=== PATIENT | female | born 1990 | race African-American/Black ===

== ENCOUNTER 2019-09-24 00:30 | Inpatient (IN) | payer SELFPAY ==
[~2019-09-24] VITALS: Ht 160 cm; Wt 72.6 kg
[2019-09-24] MEDS ORDERED: DEXT 5%/LR + PITOCIN 20UNITS/L 1,000 ML IV SCH (00:51)
[2019-09-24] MEDS ORDERED: NALOXONE HCL 0.4 MG/ML 1ML VIAL IM PRN (01:00)
[2019-09-24] MEDS ORDERED: BUTORPHANOL TARTRATE 2 MG/ML VIAL IV PRN (01:00)
[2019-09-24] MEDS ORDERED: CARBOPROST TROMETHAMINE 250 MCG/ML AMPUL IM PRN (01:00)
[2019-09-24] MEDS ORDERED: LIDOCAINE HCL 1% 20ML VIAL (Pyxis) INJ INFIL SCH (01:00)
[2019-09-24] MEDS ORDERED: MISOPROSTOL 200MCG TABLET VG SCH (01:00)
[2019-09-24] MEDS ORDERED: METHYLERGONOVINE MALEATE 0.2 MG/ML IM PRN (01:00)
[2019-09-24 01:52] LABS: BASOPHILS % 0.3 % (0.0-2.0); HEMATOCRIT. 34.3 % (36.0-48.0); HEMOGLOBIN. 11.2 g/dL (12.0-16.0); LYMPHOCYTES % 15.2 % (20.0-50.0); MEAN CORPUSCULAR HEMOGLOBIN 28.4 pg (28.0-32.0); MEAN PLATELET VOLUME 9.9 fl (7.4-10.4); MONOCYTES % 3.5 % (2.0-8.0); PLATELET 285 x1000/uL (130-400); RED BLOOD CELL COUNT 3.94 mill/uL (4.2-5.4); RED CELL DISTRIBUTION WIDTH 14.8 % (11.6-14.6)
[2019-09-24 02:01] LABS: INR 0.9; PARTIAL THROMBOPLASTIN TIME 24.5 sec (23.4-31.0); PROTHROMBIN TIME 9.3 sec (9.6-11.0)
[2019-09-24 02:12] LABS: CHLORIDE 105 mEq/L (98-107)
[2019-09-24 02:39] LABS: HEPATITIS B SURFACE ANTIGEN NEGATIVE
[2019-09-24] MEDS ORDERED: LANOLIN OINT 7GM TUBE TOP PRN (03:45)
[2019-09-24] MEDS ORDERED: IBUPROFEN 400MG TABLET PO PRN (03:45)
[2019-09-24] MEDS ORDERED: GLYCERIN/WITCH HAZEL LEAF MEDICATED PAD TOP PRN (03:45)
[2019-09-24] MEDS ORDERED: OXYCODONE HCL/ACETAMINOPHEN 5/325MG TABLET PO PRN (03:45)
[2019-09-24] MEDS ORDERED: IBUPROFEN 800MG TABLET PO PRN (03:45)
[2019-09-24] MEDS ORDERED: BISACODYL 10MG SUPP PR PRN (03:45)
[2019-09-24] MEDS ORDERED: BENZOCAINE/LANOLIN/ALOE VERA SPRAY TOP PRN (03:45)
[2019-09-24] MEDS ORDERED: ACETAMINOPHEN WITH CODEINE 300/30MG TABLET PO PRN ×2 (03:45)
[2019-09-24] MEDS ORDERED: ACETAMINOPHEN 500MG TABLET PO PRN (03:45)
[2019-09-24] MEDS ORDERED: HEMORRHOIDAL SUPP PR PRN (03:45)
[2019-09-24] MEDS ORDERED: RHO(D) IMMUNE GLOBULIN 300 MCG/SYR IM PRN (03:45)
[2019-09-24] MEDS ORDERED: MAGNESIUM 20 G PREMIX (L & D) 500 ML IV SCH (04:14)
[2019-09-24 07:32] LABS: CLARITY URINE CLOUDY (CLEAR); COLOR URINE RED (YELLOW); KETONES URINE NEGATIVE (NEGATIVE); LEUKOCYTE ESTERASE URINE 3+ (NEGATIVE); NITRITE URINE POSITIVE (NEGATIVE); OCCULT BLOOD URINE 3+ (NEGATIVE); PROTEIN URINE 2+ (NEGATIVE); SPECIFIC GRAVITY URINE 1.016 (1.005-1.030)
[2019-09-24] MEDS ORDERED: MAGNESIUM/ALUMINUM HYDROXIDE/SIMETHICONE 30ML UDC PO SCH (07:43)
[2019-09-24 07:48] LABS: *BARBITURATES SCREEN URINE NEGATIVE (NEGATIVE); *BENZODIAZEPINES SCREEN URINE NEGATIVE (NEGATIVE); *COCAINE SCREEN URINE NEGATIVE (NEGATIVE); CANNABINOID URINE SCREEN NEGATIVE (NEGATIVE); METHADONE URINE SCREEN NEGATIVE (NEGATIVE)
[2019-09-24 07:49] LABS: OPIATES URINE SCREEN NEGATIVE (NEGATIVE); PHENCYCLIDINE URINE SCREEN NEGATIVE (NEGATIVE)
[2019-09-24 08:00] VITALS: BP 127/72
[2019-09-24] MEDS ORDERED: SIMETHICONE 80MG TABLET CHEW PO SCH (08:00)
[2019-09-24 08:10] LABS: *AMPHETAMINES SCREEN URINE PRESUMTIVE POSITIVE (NEGATIVE)
[2019-09-24] MEDS ORDERED: PRENATAL VIT/FE FUMARATE/FA TABLET PO SCH (09:00)
[2019-09-24 09:31] LABS: HEMATOCRIT. 30.5 % (36.0-48.0); HEMOGLOBIN. 10.1 g/dL (12.0-16.0); MEAN CORPUSCULAR HEMOGLOBIN 28.5 pg (28.0-32.0); MEAN CORPUSCULAR VOLUME 85.8 fL (81.0-99.0); PLATELET 242 x1000/uL (130-400); RED BLOOD CELL COUNT 3.55 mill/uL (4.2-5.4); RED CELL DISTRIBUTION WIDTH 14.6 % (11.6-14.6)
[2019-09-24 12:28] LABS: PLATELET ESTIMATE NORMAL
[2019-09-24 13:00] VITALS: BP 125/81
[2019-09-24 16:08] VITALS: BP 101/52
[2019-09-24] MEDS ORDERED: PENICILLIN G BENZATHINE 2,400,000 UNITS/4ML SYR IM NR (18:00)
[2019-09-24] MEDS ORDERED: DOCUSATE SODIUM 100MG CAPSULE PO SCH (21:00)
[2019-09-25] MEDS ORDERED: FERROUS SULFATE 325MG TABLET PO SCH (07:30)
== END 2019-09-24 18:30 | disposition left against medical advice (07) | DRG 560 ==
LOC: OBSVTOIN 00:30 → 8 EST LDRP 00:30 → 8EST 07:30
PROVIDERS: ADMIT Specialist; ATTEND Specialist
PROC: 10E0XZZ Delivery of Products of Conception, External Approach (ICD-10-PCS; principal; 2019-09-24)
PROC: 0HQ9XZZ Repair Perineum Skin, External Approach (ICD-10-PCS; 2019-09-24)
DX: O70.0 First degree perineal laceration during delivery (principal); O99.345 Other mental disorders complicating the puerperium; F53.1 Puerperal psychosis
CPT/HCPCS: 36415; 80053; 80305; 80307; 80359; 81003; 82962; 83735; 84550; 85025; 85384; 86592; 86593; 86703; 86762; 86780; 86850; 86900; 87340; J0561; J0595; J2590; J3475; J3490